=== PATIENT | male | born 1940 | race Caucasian/White ===

== ENCOUNTER → 2021-08-15 10:47 | Outpatient (REF) | payer MEDICARE, OTHER, SELFPAY | LOC: ANHLAB 10:47 | PROVIDERS: Visit Provider Nurse Practitioner | DX: D04.22 Carcinoma in situ of skin of left ear and external auricular canal (principal) | CPT/HCPCS: 88305 ==

== ENCOUNTER → 2021-09-11 08:44 | Outpatient (REF) | payer MEDICARE, OTHER, SELFPAY | LOC: ANHLAB 08:44 | PROVIDERS: Visit Provider Nurse Practitioner | DX: C44.229 Squamous cell carcinoma of skin of left ear and external auricular canal (principal) | CPT/HCPCS: 88305; 88331 ==

== ENCOUNTER 2022-03-15 15:00 | Outpatient (NON) | payer MEDICARE, OTHER, SELFPAY | END 2022-03-15 15:01 | disposition home or self-care (01) | LOC: ANHLAB 03-16 15:00 | PROVIDERS: Visit Provider Nurse Practitioner | DX: D49.2 Neoplasm of unspecified behavior of bone, soft tissue, and skin (principal) | CPT/HCPCS: 88305 ==